=== PATIENT | male | born 1970 | race Caucasian/White ===

== ENCOUNTER 2017-01-14 23:41 | Emergency (ER) | payer BC ==
[~2017-01-14] VITALS: Ht 190.5 cm; Wt 109.6 kg
[~2017-01-14 23:41] MED LIST: CEPH500C2 PO; DULO30CA52 PO; DULO60CA56 PO; HYDR-3989 PO; IBUP-1546 PO; IBUP-1547 PO; LITH300T2 PO; LORA0.5T2 PO; QUET100T69 PO
--- OUTSIDE RECORDS SUMMARY | 2017-01-14 23:47 | XMS REPORT | Continuity of Care Document ---
Author Author [facility] Organization [facility] Address Unknown Phone Unavailable Allergies Active Description Code Type Severity Reaction Onset Reported/Identified Relationship to Patient Clinical Status Yes tramadol tramadol Drug Allergy Severe SEIZURES 06/04/2015 Medications Problems Procedures Results Encounters ACCT No. Visit Date/Time Discharge Status Pt. Type Provider Facility Loc./Unit Complaint [id number] 06/04/2015 20:50:00 2014 22:01:00 DIS Emergency Chanda POP, Julio Stoll [facility] E.ED
--- OUTSIDE RECORDS SUMMARY | 2017-01-14 23:47 | XMS REPORT | Continuity of Care Document ---
Author Author [facility] Organization [facility] Address Unknown Phone Unavailable Care Team Providers Care Clinical Education Consultant Name Role Phone No Pcp, Na Primary Care Physician Unavailable Source Comments Some departments are not documenting in the electronic medical record. If you do not see the information that you expected, contact Release of Information in the Health Information Management department at [phone] for further assistance in locating additional records.[facility] Active Allergies and Adverse Reactions Allergen Noted Date Severity Reactions Comments Dust 01/03/2016 Low ITCHING Grass Pollen 01/03/2016 Low SNEEZING Current Medications Prescription Sig. Disp. Refills Start End Date Status Date NO HOME MEDICATIONS Active Active Problems Problem Noted Date Traumatic arthritis of left knee 01/06/2016 Social History Tobacco Use Types Packs/Day Years Used Date Never Smoker Last Filed Vital Signs Vital Sign Reading Time Taken Blood Pressure 115/73 01/03/2016 10:41 AM CDT Pulse 65 01/03/2016 10:41 AM CDT Temperature - - Respiratory Rate - - Height 1.905 m (6' 3") 01/03/2016 10:41 AM CDT Weight 103.057 kg (227 lb 3.2 01/03/2016 10:41 AM CDT oz) Body Mass Index 28.4 01/03/2016 10:41 AM CDT Oxygen Saturation - - Plan of Care Health Maintenance Due Date Last Done Comments Physical (Comprehensive) 1978 Exam Pertussis Vaccine 1982 Tetanus Vaccine 1988 Influenza Vaccine 06/14/2017 Results from Last 3 Months Not on file
--- OUTSIDE RECORDS SUMMARY | 2017-01-14 23:47 | XMS REPORT | Continuity of Care Document ---
Author Author [facility] Organization [facility] Address Unknown Phone Unavailable Support Name Relationship Address Phone HARSHILISRAELNATALIYA APRN Caregiver [address] [place] [phone] Unavailable RORY DICKINSON MD Caregiver [address] [facility] [address] [place] [address] Unavailable ASHLI KELSEY Next Of Kin [address] [facility] [address] [address] [place] [id number] Insurance Providers Guarantor Rainer Kelsey Address [address] [facility] [place] [address] Email [email or web address] [facility] Policy Number [id number] Subscriber's Name Ashli Kelsey Relationship 01 Spouse Group Number [id number] Chief Complaint and Reason for Visit Chief Complaint Upper Extremity Problem Reason for Visit [id number] Problems Active Problems Medical Problem Onset Date Status Bursitis Unknown Acute Cellulitis Unknown Acute Leg pain Unknown Leg swelling Unknown Pain, dental Unknown Acute hepatitis c Unknown Acute seizure Unknown Acute Past Problems Medical Problem Onset Date Dental infection Unknown Fever Unknown Olecranon bursitis, right elbow Unknown Post-op pain Unknown Medications Current Home Medications Medication Dose Units Route Directions Days Qty Instructions Start Date Acetaminophen/Hydrocodone Bitart ([place] 5-325 Tablet) 5-325 Tablet 1 Tab Oral Every 6 Hr Prn as needed for Pain 2 Days [address] [employer] [facility] [address] [phone] 01/13/17 Cephalexin 500 Mg Capsule 500 Mg Oral Four Times Daily 10 Days [address] [employer] [facility] [address] [phone] 01/13/17 Duloxetine Hcl 30 Mg Capsule. 30 Mg Oral Daily TAKE WITH 60 MG TO EQUAL 90 MG DAILY 04/07/16 Duloxetine Hcl 60 Mg Capsule. 60 Mg Oral Daily TAKE WITH 30 MG TO EQUAL 90 MG DAILY 11/04/16 Ibuprofen 400 Mg Tablet 400-800 Mg Oral Three Times A Day as needed for Pain 11/04/16 Ibuprofen 800 Mg Tablet 800 Mg Oral Every 8 Hours Prn 7 Days [address] [employer] [facility] [address] [phone] 01/13/17 [place] Carbonate 300 Mg Tablet.er 300 Mg Oral Twice A Day Lorazepam 0.5 Mg Tablet 0.5 Mg Oral Twice A Day as needed for Anxiety 11/04/16 Quetiapine Fumarate 100 Mg Tablet 200 Mg Oral Bedtime 11/04/16 Past Home Medications Medication Directions Ordered Status Cymbalta , 07/02/15 Discontinued Lorazepam (Ativan) 0.5 Mg Tablet, 0.5 Mg Oral As Needed 11/15/11 Discontinued Temazepam (Restoril) 30 Mg Capsule, 10 Mg Oral Bedtime 11/15/11 Discontinued Social History Social History Problem Response Recorded Date/Time Onset Date Status Chewing Tobacco Status Yes 06/18/2013 8:19pm Not Applicable Not Applicable Hx Substance Use Y hx-meth, heroin, cocain, acid, ect 11/04/2016 12:53pm Not Applicable Not Applicable Hx Alcohol Use Yes 11/04/2016 12:53pm Not Applicable Not Applicable Tobacco Usage none 05/22/2014 7:27pm Not Applicable Not Applicable Hospital Discharge Instructions No hospital discharge instructions. Plan of Care Discharge Date 01/13/17 1:33pm Disposition 01 DISCHARGED HOME, SELF-CARE Condition at Discharge Stable Instructions/Education Provided Elbow Bursitis (ED) RICE Therapy (ED) Forms Provided [facility] Work/School Permit Prescriptions See Medication Section Referrals ROYR DICKINSON MD Address: [place] [facility] [address] [place] [phone] Additional Instructions/Education Take cephalexin as directed. Use ibuprofen as directed. Take hydrocodone only as needed for severe elbow pain. Follow with primary care clinic tomorrow. Functional Status No functional status results. Allergies, Adverse Reactions, Alerts Allergen Type Severity Reaction Status Last Updated Tramadol Allergy Unknown SEIZURE Active 01/13/17 Immunizations Query Response on File Recorded Date/Time Hx Influenza Vaccination No 07/02/15 4:29am Hx Pneumococcal Vaccination No 07/02/15 4:29am Hx Tetanus, Diptheria, Pertussis Y < 5 YEARS 07/02/15 4:29am Hx Influenza Vaccination No 07/02/15 4:29am Hx Tetanus, Diptheria, Pertussis Y < 5 YEARS 07/02/15 4:29am Influenza Vaccine Hx NO 01/13/17 1:07pm Tetanus Diptheria Vaccine History UP TO DATE 01/13/17 1:07pm Vital Signs Acute Vital Signs Vital Response Date/Time Temperature (Fahrenheit) 97.9 deg F (96.8 - 99.1) 01/13/2017 1:04pm Temperature (Calculated Celsius) 36.88083 degrees C (36.0 - 37.3) 01/13/2017 1:04pm Pulse Rate (adult) 91 bpm (60 - 100) 01/13/2017 1:04pm Respiratory Rate 20 breaths/min (10 - 20) 01/13/2017 1:04pm O2 Sat by Pulse Oximetry 98 % (90 - 100) 01/13/2017 1:04pm Blood Pressure 132/89 mm Hg 01/13/2017 1:04pm Height (Feet) 6 feet 11/04/2016 12:42pm Height (Inches) 75.50 inches 01/13/2017 1:04pm Weight (Kilograms) 106.700 kg 01/13/2017 1:04pm Body Mass Index (BMI) 29.0 01/13/2017 1:04pm Results Laboratory Results Test Name Result Units Flags Reference Collection Date/Time Result Date/ Time Comments White Blood Count 8.3 T/MM3 4.5-11.0 11/04/2016 1:14pm 11/04/2016 1: 20pm Red Blood Count 4.05 M/MM3 L 4.50-5.90 11/04/2016 1:14pm 11/04/2016 1: 20pm Hemoglobin 12.1 GM/DL L 13.5-17.5 11/04/2016 1:14pm 11/04/2016 1:20pm Hematocrit 36.7 % L 41-53 11/04/2016 1:14pm 11/04/2016 1:20pm Mean Corpuscular Volume 90.6 UM3 80-100 11/04/2016 1:14pm 11/04/2016 1: 20pm Mean Corpuscular Hemoglobin 29.9 UUG 26-34 11/04/2016 1:2016 1:20pm Mean Corpuscular Hemoglobin Concent 33.0 GM/DL 31-37 11/04/2016 1:11/04/2016 1:20pm RDW Standard Deviation 44.4 FL 36.9-50.2 11/04/2016 1:11/04/2016 1 :20pm Platelet Count 222 T/MM3 130-400 11/04/2016 1:1411/04/2016 1:20pm Mean Platelet Volume 8.3 UM3 L 9.4-12.4 11/04/2016 1:11/04/2016 1: 20pm Neutrophils (%) (Auto) 59.3 % 33-66 11/04/2016 1:11/04/2016 1: 20pm Lymphocytes (%) (Auto) 27.1 % 23-45 11/04/2016 1:11/04/2016 1: 20pm Monocytes (%) (Auto) 9.6 % H 0-9.0 11/04/2016 1:11/04/2016 1:20pm Eosinophils (%) (Auto) 3.7 % 0-4 11/04/2016 1:11/04/2016 1:20pm Basophils (%) (Auto) 0.2 % 0-2 11/04/2016 1:11/04/2016 1:20pm Immature Granulocyte % (Auto) 0.1 % 0.0-0.5 11/04/2016 1:2016 1:20pm Absolute Neutrophils (auto) 4.9 T/MM3 1.8-7.7 11/04/2016 1:2016 1:20pm Absolute Lymphocytes (auto) 2.2 T/MM3 1-4.8 11/04/2016 1:2016 1:20pm Absolute Monocytes (auto) 0.8 T/MM3 0-0.8 11/04/2016 1:11/04/2016 1:20pm Absolute Eosinophils (auto) 0.3 T/MM3 0-0.5 11/04/2016 1:2016 1:20pm Absolute Basophils (auto) 0.0 T/MM3 0-0.2 11/04/2016 1:11/04/2016 1:20pm Absolute Immature Granulocyte (auto 0.01 T/MM3 0.00-0.03 11/04/2016 1: 14pm 11/04/2016 1:20pm Icterus Index < 2 0-7 11/04/2016 1:1411/04/2016 1:34pm Chemistry Specimen Hemolysis 39 H 0-25 11/04/2016 1:14pm 11/04/2016 1: 34pm 26-70: Specimen Exhibited Slight Hemolysis - can falsely elevate K (Potassium) and Urine Protein. Turbidity < 20 0-20 11/04/2016 1:14pm 11/04/2016 1:34pm Sodium Level 144 MEQ/L 134-144 11/04/2016 1:14pm 11/04/2016 1:34pm Potassium Level 4.3 MEQ/L 3.6-5 11/04/2016 1:14pm 11/04/2016 1:34pm Chloride Level 111 MEQ/L H 98-107 11/04/2016 1:14pm 11/04/2016 1:34pm Carbon Dioxide Level 26 MEQ/L 22-30 11/04/2016 1:1411/04/2016 1: 34pm Anion Gap 7 MEQ/L 5-15 11/04/2016 1:14pm 11/04/2016 1:34pm Blood Urea Nitrogen 15.0 MG/DL 9-11/04/2016 1:14pm 11/04/2016 1: 34pm Creatinine 0.8 MG/DL 0.8-1.5 11/04/2016 1:14pm 11/04/2016 1:34pm BUN/Creatinine Ratio 19 RATIO 6-26 11/04/2016 1:11/04/2016 1:34pm Glomerular Filtration Rate Calc 105 11/04/2016 1:14pm 11/04/2016 1: 34pm Glucose Level 79 MG/DL 75-110 11/04/2016 1:14pm 11/04/2016 1:34pm Calculated Osmolality 277 MOSM/KG 261-280 11/04/2016 1:14pm 11/04/2016 1:34pm Calcium Level 9.0 MG/DL 8.4-10.2 11/04/2016 1:14pm 11/04/2016 1:34pm Total Bilirubin 0.40 MG/DL 0.20-1.30 11/04/2016 1:14pm 11/04/2016 1: 34pm Alkaline Phosphatase 65 U/L 38-126 11/04/2016 1:14pm 11/04/2016 1:34pm Total Protein 6.3 G/DL 6.3-8.2 11/04/2016 1:14pm 11/04/2016 1:34pm Albumin 3.7 G/DL 3.5-5.0 11/04/2016 1:14pm 11/04/2016 1:34pm Globulin 2.6 G/DL 2.4-3.6 11/04/2016 1:14pm 11/04/2016 1:34pm Albumin/Globulin Ratio 1.4 RATIO 1.1-2.2 11/04/2016 1:14pm 11/04/2016 1 :34pm Aspartate Amino Transf (AST/SGOT) 22 U/L 17-59 11/04/2016 1:14pm 2016 1:34pm Alanine Aminotransferase (ALT/SGPT) 25 U/L 21-72 11/04/2016 1:14pm 1:34pm C-Reactive Protein 20.4 MG/L H 0-9 11/04/2016 1:14pm 11/04/2016 1:59pm Procedures Procedure Status Date Provider(s) Ct maxillofacial w/o dye Completed 11/04/16 Comprehen metabolic panel Completed 11/04/16 Complete cbc w/auto diff wbc Completed 11/04/16 C-reactive protein Completed 11/04/16 Ther/proph/diag iv inf init Completed 11/04/16 Tx/pro/dx inj new drug addon Completed 11/04/16 Tx/pro/dx inj new drug addon Completed 11/04/16 Tx/pro/dx inj new drug addon Completed 11/04/16 Emergency dept visit Completed 11/04/16217664"INJECTION, CEFTRIAXONE SODIUM, PER 250 MG" Completed 11/04/16172918"INJECTION, KETOROLAC TROMETHAMINE, PER 15 MG" Completed 11/04/16900131"INJECTION, LORAZEPAM, 2 MG" Completed 11/04/16512943"INFUSION, NORMAL SALINE SOLUTION , 250 CC" Completed 11/04/16 Encounters Encounter Location Arrival/Admit Date Discharge/Depart Date Attending Provider Departed Emergency Room [facility] 01/13/17 12:53pm 01/13/17 1: 33pm NATALIYA GOLDEN APRN Departed Emergency Room [facility] 11/04/16 12:38pm 11/04/16 3: 30pm MIRIAN MCBRIDE MD Recent Diagnosis
[2017-01-15 00:03] VITALS: Ht 190.5 cm; Wt 109.6 kg
--- OUTSIDE RECORDS SUMMARY | 2017-01-15 00:15 | XMS REPORT | Continuity of Care Document ---
Author Author [facility] Organization [facility] Address Unknown Phone Unavailable Allergies Active Description Code Type Severity Reaction Onset Reported/Identified Relationship to Patient Clinical Status Yes tramadol tramadol Drug Allergy Severe SEIZURES 06/04/2015 Medications Problems Procedures Results Encounters ACCT No. Visit Date/Time Discharge Status Pt. Type Provider Facility Loc./Unit Complaint [id number] 06/04/2015 20:50:00 2014 22:01:00 DIS Emergency Chanda POP, Julio Stoll [facility] E.ED
--- OUTSIDE RECORDS SUMMARY | 2017-01-15 00:15 | XMS REPORT | Continuity of Care Document ---
Author Author [facility] Organization [facility] Address Unknown Phone Unavailable Care Team Providers Care Utility Agent Name Role Phone No Pcp, Na Primary Care Physician Unavailable Source Comments Some departments are not documenting in the electronic medical record. If you do not see the information that you expected, contact Release of Information in the Health Information Management department at [phone] for further assistance in locating additional records.[facility] Active Allergies and Adverse Reactions Allergen Noted [...]
--- NOTE | 2017-01-15 00:36 | NUR ---
LAB LAB AT BEDSIDE FOR BLOOD DRAW
--- NOTE | 2017-01-15 00:44 | ERPDOC ---
Departure Disposition Decision Date: Jan 15, 2017 Disposition Decision Time: 02:33 Disposition: 01 DISCHARGED HOME, SELF-CARE Impression Impression Impression: Primary Impression: Septic olecranon bursitis of right elbow Severity: Moderate Condition: Improved Seen By: Physician only Referrals: RORY DICKINSON MD (Family) 1 Day Patient Instructions: Elbow Bursitis (ED) Problems/Meds/Labs Reviewed?: Yes Medications reviewed and manag: Yes Additional Instructions: You have an infection in your elbow. Take the antibiotics as prescribed. Take ibuprofen and tylenol as needed for aches/pains. Use the norco for pain not controlled with the ibuprofen/tylenol. Follow up with your doctor tomorrow; you may need to have your elbow tapped several times until the fluid that comes out is clear. Follow up immediately if your symptoms are worsening or if you can't move your elbow. Follow up care ordered?: Yes Mental Status: Alert, Oriented HPI - Upper Extremity General Chief Complaint: Upper Extremity Pain Stated Complaint: septic bursitis Time Seen by MD: 00:05 Source: patient, family Exam Limitations: no limitations HPI - Upper Extremity Initial Comments 46[facility]. Pt was working in his basement 4 days ago and thinks he remembers bumping his elbow. Three days ago it began to swell; swelling got worse, so the pt was seen in urgent care. He was diagnosed with bursitis, but was placed on atbx (keflex), in addition to the usual treatment. Pt was then seen by his PCM yesterday and atbx were changed to rocephin IM and PO cipro and pt was dx'ed with septic bursitis. Sx have not improved, and pt is beginning to have systematic sx (chills, sweats, etc). To date, no one has drawn labs, culx, or ordered plain films. Occurred At: home Onset/Timing: Rapid, Getting worse Duration: other Pain/Severity Scale: Now & Worst: 6/10 Severity: moderate Pain/Injury Location: right elbow 1 - Swelling and erythema Method of Injury/Context: direct blow Modifying Factors: IMPROVES WITH: cold therapy, immobilization, pain medication , WORSE WITH: jarring, movement Hx of Similar Symptoms: Yes Quality: fullness Allergies: Coded Allergies: tramadol (Verified Allergy, Unknown, SEIZURE, 01/17/17) Past History Patient Medical History (1) Bursitis Past Medical History Metabolic: hypertension Hx Echocardiogram: No Neurological: seizures Musculoskeletal: osteoarthritis Infectious: hepatitis C Psychological: anxiety, bipolar, drug abuse Surgical History Joint: knee Vaccines Hx Influenza Vaccination: No Hx Pneumococcal Vaccination: No Hx Tetanus, Diptheria, Pertuss: Yes (< 5 YEARS) Social History Substance Use Type: does not use Alcohol Intake: occasionally Sexuality: female partner Review of Systems Musculoskeletal General: joint pain, joint swelling, see HPI All other Systems All Other Systems: Reviewed and Negative Physical Exam General General Nourishment: well nourished, well developed, appears stated age, no acute distress, adult, obese General Body Habitus: well groomed Vitals and Pain Weight: Kilograms: 109.600 Height (feet): 6 Height (inches): 3.00 Triage Pain Scale: RN VS reviewed by Provider: Yes Musculoskeletal Joint : Side: Right Joint: elbow Joint Findings: FOUND: ROM limited (Decreased extension), discoloration ( erythema), pain, swelling, NOT FOUND: deformity, instability, laceration Supervisory Exam Head: atraumatic Eyes: PERRL Nares: no exudate Neck: trachea midline Chest: symmetric Abdomen: non-distended Neurological: no abnormal movements Skin: pink, dry Psychological: alert, appropriate Differential Diagnoses Considering: Abscess, Contusion, Dislocation, Fracture, Sprain, Strain, Other ( Bursitis, septic bursitis, septic arthritis) Procedures Aspiration of Joint Procedure Detail Skin overlying the right elbow was cleaned with alcohol and the skin was infiltrated with 1% lidocaine with epinephrine. The skin was then prep'ed in the usual sterile fashion with chlorhexidine. The fluctuant mass was aspirated with an 18g needle with return of 6cc of turbid, sanguinous fluid. Pt tolerated the procedure well, and the fluctuant mass was confirmed decompressed. A sterile bandage was placed over the needle insertion site. The fluid was sent for analysis. Progress Results/Orders Orders Procedure Category Date Status Time Elbow Right 3 View RAD 01/15/17 Resulted Hemagram - Cbc No Diff LAB 01/15/17 Complete Lidocaine 1% / Epi PHA 01/15/17 Complete 1:100,000 (Xylocaine 01:15 Triamcinolone PHA 01/15/17 Complete (Kenalog-40) 01:15 Body Fluid Culture MANDEEP 01/15/17 Complete W/Gramstain 01:29 Iv Lock (Ed Only) EDM 01/15/17 Transmitted 01:29 Normal Saline (Normal PHA 01/15/17 Complete Saline Iv) 01:30 Clindamycin 600mg PHA 01/15/17 Complete Ivpb (Cleocin 600 Mg I 01:45 Blood Culture MANDEEP 01/15/17 Complete Morphine Sulfate PHA 01/15/17 Complete (Morphine) 02:00 Ondansetron Inj PHA 01/15/17 Complete (Zofran) 02:00 Hydrocodone/Apap PHA 01/15/17 Complete 5/325 Prepack ([place] 5 03:00 Lab Results Laboratory Tests Test 01/15/17 00:37 White Blood Count 15.3T/MM3 Red Blood Count 4.31M/MM3 Hemoglobin 12.7GM/DL Hematocrit 37.6% Mean Corpuscular Volume 87.2UM3 Mean Corpuscular Hemoglobin 29.5UUG Mean Corpuscular Hemoglobin Concent 33.8GM/DL RDW Standard Deviation 42.0FL Platelet Count 293T/MM3 Mean Platelet Volume 8.4UM3 Neutrophils % (Manual) 67.0% Lymphocytes % (Manual) 24.0% Monocytes % (Manual) 9.0% Medications Current ED Medications Lidocaine/ Epinephrine (Xylocaine 1%/ Epi 1:100,000) 20 ml O ONCE SQ Last administered on 01/15/17 01:21; Start 01/15/17 at 01:15; Stop 01/15/17 at 01:16; Status DC Triamcinolone Acetonide (Kenalog-10) 10 mg O ONCE INJ ; Start 01/15/17 at 01:15 ; Stop 01/15/17 at 01:16; Status Cancel Triamcinolone Acetonide 40 mg 40 mg O ONCE INJ ; Start 01/15/17 at 01:15; Stop 01/15/17 at 01:16; Status DC Sodium Chloride 1,000 ml @ 125 mls/hr Q8H ONCE IV Last administered on 01:52; Start 01/15/17 at 01:30; Stop 01/15/17 at 03:41; Status DC Clindamycin HCl/ Dextrose (CLEOCIN 600 mg in D5W 50 mL) 50 ml @ 100 mls/hr O ONCE IV Last administered on 01/15/17 02:10; Start 01/15/17 at 01:45; Stop at 02:14; Status DC Morphine Sulfate (Morphine) 2 mg O ONCE IV Last administered on 01/15/17 02:01 ; Start 01/15/17 at 02:00; Stop 01/15/17 at 02:01; Status DC Ondansetron HCl (Zofran) 4 mg O ONCE IV Last administered on 01/15/17 02:02; Start 01/15/17 at 02:00; Stop 01/15/17 at 02:01; Status DC Acetaminophen/ Hydrocodone Bitart ([place]CO 5 (PrePack)) 1 pack O ONCE SENT HOME Last administered on 01/15/17 03:03; Start 01/15/17 at 03:00; Stop 01/15/17 at 03: 02; Status DC Progress Progress Pt with scant G+ cocci and numerous PMN's on micro exam of bursal fluid. Will contact Ortho to verify lack of need for surgery, then treat with PO clinda and instructions to f/u with PCM for drainage as indicated. Consult/PCP Consult/PCP : Physician Contacted: Ortho Time Called: 02:30 Time of first response: 02:38 Type of discussion: Phone Consult/PCP Discussion Details Since pt is afebrile, has ROM, and with lab findings, f/u with PCM for re-eval and tapping as needed. If sx progress or fail to improve, will require surgical debridement. Xray Xray : Xray: Elbow R Interpretation: Normal, Interpreted by JACKIE Villagomez DO Jan 15, 2017 00:44 debridement. Xray Xray : Xray: Elbow R Interpretation: Normal, Interpreted by JACKIE Villagomez DO Jan 15, 2017 00:44
[2017-01-15 00:45] LABS: HCT - HEMATOCRIT 37.6 % (41-53); HGB - HEMOGLOBIN 12.7 GM/DL (13.5-17.5); MEAN CORPUSCULAR HGB 29.5 UUG (26-34); MEAN CORPUSCULAR HGB CONC(MCHC 33.8 GM/DL (31-37); MEAN CORPUSCULAR VOLUME 87.2 UM3 (80-100); MEAN PLATELET VOLUME 8.4 UM3 (9.4-12.4); RED BLOOD COUNT 4.31 M/MM3 (4.50-5.90); WBC - WHITE BLOOD COUNT 15.3 T/MM3 (4.5-11.0)
--- NOTE | 2017-01-15 00:53 | NUR ---
XRAY PT TAKEN TO XRAY PER W/C
--- NOTE | 2017-01-15 01:04 | NUR ---
ROOM PT RETURNED TO ROOM 1 PER W/C FROM XRAY
[2017-01-15] MEDS ORDERED: LIDOCAINE 1%/EPI 1:100,000 20ml MDV SQ ONE (01:15)
[2017-01-15] MEDS ORDERED: TRIAMCINOLONE INJ ONE (01:15)
[2017-01-15] MEDS ORDERED: TRIAMCINOLONE 40mg/ml INJECTION 1ml VIAL INJ ONE (01:15)
--- NOTE | 2017-01-15 01:20 | NUR ---
CLEANSING RIGHT ELBOW CLEANED BY DR JACOBSON WITH CHLORHEXADINE SCRUB PT JUDIE WELL, AT BEDSIDE
--- NOTE | 2017-01-15 01:21 | NUR ---
LOCAL LIDOCAINE W/EPI USED LOCAL BY DR JACOBSON TO RIGHT ELBOW PT JUDIE WELL
--- NOTE | 2017-01-15 01:24 | NUR ---
PROCEDURE #18GA NEEDLE INSERTED TO RIGHT ELBOW AND ASPIRATED 6CC FLUID PROCEDURE DONE BY DR INDIRA CASTRO TO PUNCTURE SITE AFTER PROCEDURE
[2017-01-15] MEDS ORDERED: NORMAL SALINE 1,000 ML IV ONE (01:30)
[2017-01-15] MEDS ORDERED: CLINDAMYCIN 600mg IVPB 50 ML IV ONE (01:45)
--- NOTE | 2017-01-15 01:48 | NUR ---
IVL IVL STARTED IN THE LEFT HAND WITH #20GA IV, FIRST ATTEMPT BLOOD OBTAINED FOR BLOOD CULTURES PT JUDIE WELL
--- NOTE | 2017-01-15 01:52 | NUR ---
IV FLUID #1 IV 1000CC NS STARTED AT 125CC/HR IV SITE WITHOUT REDNESS OR SWELLING PT JUDIE WELL AT [facility]
[2017-01-15] MEDS ORDERED: ONDANSETRON 4mg/2ml INJECTION IV ONE (02:00)
[2017-01-15] MEDS ORDERED: MORPHINE SULFATE 2 MG SYRINGE IV ONE (02:00)
--- NOTE | 2017-01-15 02:02 | NUR ---
ZOFRAN IV ZOFRAN GIVEN ORDERED
--- NOTE | 2017-01-15 02:04 | NUR ---
MORPHINE IV MORPHINE GIVEN ORDERED FOR PAIN PT RATES ELBOW PAIN 05/23
--- NOTE | 2017-01-15 02:10 | NUR ---
CLINDAMYCIN CLINDAMYCIN 600MG STARTED IVPB TO MAINLINE IV AT 50CC/HR IV SITE REMAINS WITHOUT REDNESS OR SWELLING PT AND TALKATIVE AND PLEASANT WITH STAFF
--- NOTE | 2017-01-15 02:23 | NUR ---
STATUS PT REPORTS HE GOT NO RELIEF WITH THE MORPHINE, DENIES NAUSEA ABLE TO BEND ARM COMPLETELY NOW WITH SOME OF THE FLUID OFF
[2017-01-15] MEDS ORDERED: CLIN300C86 PO (02:35)
--- NOTE | 2017-01-15 02:40 | NUR ---
CLINDAMYCIN IV CLINDAMYCIN INFUSED IV NS RESUMED AT 125CC/HR
[2017-01-15] MEDS ORDERED: HYDR-4246 PO (02:48)
[2017-01-15] MEDS ORDERED: HYDROCODONE/APAP 5/325 (PrePack) SENT HOME ONE (03:00)
--- NOTE | 2017-01-15 03:00 | NUR ---
IV FLUID #1 IV NS STOPPED 73CC INFUSED IV SITE WITHOUT REDNESS OR SWELLING
--- NOTE | 2017-01-15 03:01 | NUR ---
IVL IVL DC'D WITH CATH INTACT DRSG APPLIED TO IV SITE PT JUDIE WELL
--- NOTE | 2017-01-15 03:05 | NUR ---
INSTUCTIONS DISMISSAL AND MEDICATION INSTRUCTIONS GIVEN TO PT AND 2 RX GIVEN FOR CLINDAMYCIN AND NORCO WITH INSTRUCTIONS DISP PREPACK OF NORCO WITH INSTRUCTIONS PT AND BOTH VERBALIZED UNDERSTANDING OF ALL
[2017-01-15 03:08] VITALS: BP 137/73; PULSE 83; RESP 16; TEMP 98.9; O2SAT 96
--- NOTE | 2017-01-15 03:08 | NUR ---
DISMISS PT DISMISSED AMBULATORY WITH
--- NOTE | 2017-01-15 07:44 | DI ---
Indication: ITS.REASON: Pain, bursitis PROCEDURE: ELBOW RIGHT 3 VIEW: Encounter: Initial Comparison: None Findings: There is no acute fracture, dislocation or malalignment identified. Impression: No acute osseous abnormality. .
--- NOTE | 2017-01-19 14:46 | NUR ---
CULTURE REPORT SPOKE TO PT ABOUT RESULTS OF CULTURE. PT STATES HE HAD SURGERY TO THIS AREA BY DR. TONY 2 DAYS AGO. PT STATES [facility] CONSULTED A "DISEASE SPECIALIST" AND HE WAS PLACED ON KEFLEX AGAIN X3 WEEKS. DR. WHITE CONSULTED WITH DR. TONY AND HE CONFIRMS THAT HE SAW THE CULTURE REPORTS PRIOR TO THIS CALL AND PT IS ON THE CORRECT MEDICATION AND REQUESTS NO CHANGE. PT UPDATED PER PHONE.
== END 2017-01-15 03:08 | disposition home or self-care (01) ==
LOC: ED 23:41
DX: M71.121 Other infective bursitis, right elbow (principal); B96.89 Other specified bacterial agents as the cause of diseases classified elsewhere; Z79.899 Other long term (current) drug therapy
CPT/HCPCS: 20605; 36415; 73080; 85007; 85027; 87040; 87070; 87186; 99284; J2405; J7030

== ENCOUNTER 2017-01-17 08:53 | Day surgery (SDC) | payer BC ==
[2017-01-17] VITALS (24 sets, daily range): BP systolic 118–169; BP diastolic 64–114; PULSE 60–102; RESP 14–28; TEMP 96.8–98.6; O2SAT 92–100; Ht 190.5 cm; Wt 108.6 kg
[~2017-01-17] VITALS: Ht 190.5 cm; Wt 108.6 kg
[~2017-01-17 08:53] MED LIST changes: +CLIN300C86 PO; +HYDR-4246 PO; +NOZIN NASAL SWAB NS PRN; +ONDANSETRON 4mg/2ml INJECTION IV PRN
--- OUTSIDE RECORDS SUMMARY | 2017-01-17 08:58 | XMS REPORT | Continuity of Care Document ---
Author Author [facility] Organization [facility] Address Unknown Phone Unavailable Support Name Relationship Address Phone RORY DICKINSON MD Caregiver [address] [place] [address] Unavailable FEBRUARYJACKIE DO Caregiver [address] [address] Unavailable ASHLI KELSEY Next Of Kin [address] [place] [id number] Insurance Providers Guarantor Rainer Kelsey Address [address] [place] [address] Email [email or web address] [facility] Policy Number [id number] Subscriber's Name Ashli Kelsey Relationship 01 Spouse Group Number [id number] Chief Complaint and Reason for Visit Chief Complaint Upper Extremity Pain Reason for Visit Septic olecranon bursitis of right elbow Problems Active Problems Medical Problem Onset Date Status Bursitis Unknown Acute Cellulitis Unknown Acute Leg pain Unknown Leg swelling Unknown Pain, dental Unknown Acute hepatitis c Unknown Acute seizure Unknown Acute Past Problems Medical Problem Onset Date Dental infection Unknown Fever Unknown Olecranon bursitis, right elbow Unknown Post-op pain Unknown Septic olecranon bursitis of right elbow Unknown Medications Current Home Medications Medication Dose Units Route Directions Days Qty Instructions Start Date Acetaminophen/Hydrocodone Bitart ([place] 5-325 Tablet) 5-325 Tablet 1 Tab Oral Every 6 Hr Prn as needed for Pain 2 Days [address] John [employer] Quality Assurance Specialist [facility] [phone] 01/13/17 Cephalexin 500 Mg Capsule 500 Mg Oral Four Times Daily 10 Days [address] John [employer] Quality Assurance Specialist [facility] [address] . [phone] 01/13/17 Clindamycin Hcl 300 Mg Capsule 1 Cap Oral Four Times Daily 14 Days 56 Capsule TAKE WITH A FULL GLASS OF WATER TO AVOID ESOPHAGEAL IRRITATION. Duloxetine Hcl 30 Mg Capsule. 30 Mg Oral Daily TAKE WITH 60 MG TO EQUAL 90 MG DAILY 04/07/16 Duloxetine Hcl 60 Mg Capsule. 60 Mg Oral Daily TAKE WITH 30 MG TO EQUAL 90 MG DAILY 11/04/16 Hydrocodone/Acetaminophen ([place] 5-325 Tablet) 5-325 Tablet 1 Tab Oral Q6h/ 0300,0900,1500,2100 as needed for Pain 20 Tablet 01/15/17 Ibuprofen 400 Mg Tablet 400-800 Mg Oral Three Times A Day as needed for Pain 11/04/16 Ibuprofen 800 Mg Tablet 800 Mg Oral Every 8 Hours Prn 7 Days [address] John [employer] Quality Assurance Specialist [facility] [address] [phone] 01/13/17 Story Carbonate 300 Mg Tablet.er 300 Mg Oral Twice A Day Lorazepam 0.5 Mg Tablet 0.5 Mg Oral Twice A Day as needed for Anxiety 11/04/16 Quetiapine Fumarate 100 Mg Tablet 200 Mg Oral Bedtime 11/04/16 Past Home Medications Medication Directions Ordered Status Felicita , 07/02/15 Discontinued Lorazepam (Ativan) 0.5 Mg Tablet, 0.5 Mg Oral As Needed 11/15/11 Discontinued Temazepam (Restoril) 30 Mg Capsule, 10 Mg Oral Bedtime 11/15/11 Discontinued Social History Social History Problem Response Recorded Date/Time Onset Date Status Chewing Tobacco Status Yes 06/18/2013 8:19pm Not Applicable Not Applicable Hx Substance Use Y hx-meth, heroin, cocain, acid, ect 01/15/2017 12:10am Not Applicable Not Applicable Hx Alcohol Use Yes 01/15/2017 12:10am Not Applicable Not Applicable Tobacco Usage none 05/22/2014 7:27pm Not Applicable Not Applicable Query Response Start Date Stop Date Smoking Status Never smoker Hospital Discharge Instructions No hospital discharge instructions. Plan of Care Discharge Date 01/15/17 3:08am Disposition 01 DISCHARGED HOME, SELF-CARE Condition at Discharge Improved Instructions/Education Provided Elbow Bursitis (ED) Prescriptions See Medication Section Referrals RORY DICKINSON MD Order Date: 1 Day Address: [address] [place] [address] [place] [id number] Note: Additional Instructions/Education You have an infection in your elbow. Take the antibiotics as prescribed. Take ibuprofen and tylenol as needed for aches/pains. Use the norco for pain not controlled with the ibuprofen/tylenol. Follow up with your doctor tomorrow; you may need to have your elbow tapped several times until the fluid that comes out is clear. Follow up immediately if your symptoms are worsening or if you can't move your elbow. Care Plan and Goals Physician Care Plan Problem: Septic bursitis Goal: Follow up with primary care provider Instructions: Take medications and follow care plan as discussed/written Functional Status No functional status results. Allergies, Adverse Reactions, Alerts Allergen Type Severity Reaction Status Last Updated Tramadol Allergy Unknown SEIZURE Active 01/15/17 Immunizations Query Response on File Recorded Date/Time Hx Influenza Vaccination No 07/02/15 4:29am Hx Pneumococcal Vaccination No 07/02/15 4:29am Hx Tetanus, Diptheria, Pertussis Y < 5 YEARS 07/02/15 4:29am Hx Influenza Vaccination No 07/02/15 4:29am Hx Tetanus, Diptheria, Pertussis Y < 5 YEARS 07/02/15 4:29am Influenza Vaccine Hx NO 01/15/17 12:10am Tetanus Diptheria Vaccine History UP TO DATE 01/15/17 12:10am Tdap Vaccine Hx >5 YEARS 01/15/17 12:10am Vital Signs Acute Vital Signs Vital Response Date/Time Temperature (Fahrenheit) 98.9 deg F (96.8 - 99.1) 01/15/2017 3:08am Temperature (Calculated Celsius) 37.34884 degrees C (36.0 - 37.3) 01/15/2017 3:08am Pulse Rate (adult) 83 bpm (60 - 100) 01/15/2017 3:08am Respiratory Rate 16 breaths/min (10 - 20) 01/15/2017 3:08am O2 Sat by Pulse Oximetry 96 % (90 - 100) 01/15/2017 3:08am Blood Pressure 137/73 mm Hg 01/15/2017 3:08am Height (Feet) 6 feet 01/15/2017 12:03am Height (Inches) 3.00 inches 01/15/2017 12:03am Weight (Kilograms) 109.600 kg 01/15/2017 12:03am Body Mass Index (BMI) 30.0 01/15/2017 12:03am Results Laboratory Results Test Name Result Units Flags Reference Collection Date/Time Result Date/ Time Comments Neutrophils (%) (Auto) 59.3 % 33-66 11/04/2016 1:14pm 11/04/2016 1: 20pm Lymphocytes (%) (Auto) 27.1 % 23-45 11/04/2016 1:14pm 11/04/2016 1: 20pm Monocytes (%) (Auto) 9.6 % H 0-9.0 11/04/2016 1:14pm 11/04/2016 1:20pm Eosinophils (%) (Auto) 3.7 % 0-4 11/04/2016 1:14pm 11/04/2016 1:20pm Basophils (%) (Auto) 0.2 % 0-2 11/04/2016 1:14pm 11/04/2016 1:20pm Immature Granulocyte % (Auto) 0.1 % 0.0-0.5 11/04/2016 1:14pm 2016 1:20pm Absolute Neutrophils (auto) 4.9 T/MM3 1.8-7.7 11/04/2016 1:14pm 2016 1:20pm Absolute Lymphocytes (auto) 2.2 T/MM3 1-4.8 11/04/2016 1:14pm 2016 1:20pm Absolute Monocytes (auto) 0.8 T/MM3 0-0.8 11/04/2016 1:14pm 11/04/2016 1:20pm Absolute Eosinophils (auto) 0.3 T/MM3 0-0.5 11/04/2016 1:14pm 2016 1:20pm Absolute Basophils (auto) 0.0 T/MM3 0-0.2 11/04/2016 1:14pm 11/04/2016 1:20pm Absolute Immature Granulocyte (auto 0.01 T/MM3 0.00-0.03 11/04/2016 1: 14pm 11/04/2016 1:20pm Icterus Index < 2 0-7 11/04/2016 1:14pm 11/04/2016 1:34pm Chemistry Specimen Hemolysis 39 H 0-25 11/04/2016 1:14pm 11/04/2016 1: 34pm 26-70: Specimen Exhibited Slight Hemolysis - can falsely elevate K (Potassium) and Urine Protein. Turbidity < 20 0-20 11/04/2016 1:1411/04/2016 1:34pm Sodium Level 144 MEQ/L 134-144 11/04/2016 1:1411/04/2016 1:34pm Potassium Level 4.3 MEQ/L 3.6-5 11/04/2016 1:1411/04/2016 1:34pm Chloride Level 111 MEQ/L H 98-107 11/04/2016 1:1411/04/2016 1:34pm Carbon Dioxide Level 26 MEQ/L 22-30 11/04/2016 1:1411/04/2016 1: 34pm Anion Gap 7 MEQ/L 5-15 11/04/2016 1:1411/04/2016 1:34pm Blood Urea Nitrogen 15.0 MG/DL 9-11/04/2016 1:1411/04/2016 1: 34pm Creatinine 0.8 MG/DL 0.8-1.5 11/04/2016 1:1411/04/2016 1:34pm BUN/Creatinine Ratio 19 RATIO 6-26 11/04/2016 1:11/04/2016 1:34pm Glomerular Filtration Rate Calc 105 11/04/2016 1:11/04/2016 1: 34pm Glucose Level 79 MG/DL 75-110 11/04/2016 1:11/04/2016 1:34pm Calculated Osmolality 277 MOSM/KG 261-280 11/04/2016 1:11/04/2016 1:34pm Calcium Level 9.0 MG/DL 8.4-10.2 11/04/2016 1:11/04/2016 1:34pm Total Bilirubin 0.40 MG/DL 0.20-1.30 11/04/2016 1:1411/04/2016 1: 34pm Alkaline Phosphatase 65 U/L 38-126 11/04/2016 1:1411/04/2016 1:34pm Total Protein 6.3 G/DL 6.3-8.2 11/04/2016 1:11/04/2016 1:34pm Albumin 3.7 G/DL 3.5-5.0 11/04/2016 1:1411/04/2016 1:34pm Globulin 2.6 G/DL 2.4-3.6 11/04/2016 1:14pm 11/04/2016 1:34pm Albumin/Globulin Ratio 1.4 RATIO 1.1-2.2 11/04/2016 1:14pm 11/04/2016 1 :34pm Aspartate Amino Transf (AST/SGOT) 22 U/L 17-59 11/04/2016 1:14pm 2016 1:34pm Alanine Aminotransferase (ALT/SGPT) 25 U/L 21-72 11/04/2016 1:14pm 1:34pm C-Reactive Protein 20.4 MG/L H 0-9 11/04/2016 1:14pm 11/04/2016 1:59pm White Blood Count 15.3 T/MM3 H 4.5-11.0 01/15/2017 12:37am 01/15/2017 12 :46am Red Blood Count 4.31 M/MM3 L 4.50-5.90 01/15/2017 12:37am 01/15/2017 12: 46am Hemoglobin 12.7 GM/DL L 13.5-17.5 01/15/2017 12:37am 01/15/2017 12:46am Hematocrit 37.6 % L 41-53 01/15/2017 12:37am 01/15/2017 12:46am Mean Corpuscular Volume 87.2 UM3 80-100 01/15/2017 12:37am 01/15/2017 12:46am Mean Corpuscular Hemoglobin 29.5 UUG 26-34 01/15/2017 12:37am 2016 12:46am Mean Corpuscular Hemoglobin Concent 33.8 GM/DL 31-37 01/15/2017 12:37am 01/15/2017 12:46am RDW Standard Deviation 42.0 FL 36.9-50.2 01/15/2017 12:37am 01/15/2017 12:46am Platelet Count 293 T/MM3 130-400 01/15/2017 12:37am 01/15/2017 12:46am Mean Platelet Volume 8.4 UM3 L 9.4-12.4 01/15/2017 12:37am 01/15/2017 12 :46am Neutrophils % (Manual) 67.0 % H 33-66 01/15/2017 12:37am 01/15/2017 12: 59am Lymphocytes % (Manual) 24.0 % 23-45 01/15/2017 12:37am 01/15/2017 12: 59am Monocytes % (Manual) 9.0 % 0-9.0 01/15/2017 12:37am 01/15/2017 12:59am Microbiology Results Procedure Source Organism/Result Collection Date/Time Result Date/Time Result Status Body Fluid Culture Synovial Fluid, Right Elbow CULTURE INITIATED - RESULTS PENDING 01/15/2017 1:29am 01/15/2017 2:28am Preliminary Blood Culture Peripheral/Iv Start CULTURE INITIATED - RESULTS PENDING 01/15 1:50am 01/15/2017 1:53am Preliminary Procedures Procedure Status Date Provider(s) Ct maxillofacial w/o dye Completed 11/04/16 Comprehen metabolic panel Completed 11/04/16 Complete cbc w/auto diff wbc Completed 11/04/16 C-reactive protein Completed 11/04/16 Ther/proph/diag iv inf init Completed 11/04/16 Tx/pro/dx inj new drug addon Completed 11/04/16 Tx/pro/dx inj new drug addon Completed 11/04/16 Tx/pro/dx inj new drug addon Completed 11/04/16 Emergency dept visit Completed 11/04/16875743"INJECTION, CEFTRIAXONE SODIUM, PER 250 MG" Completed 11/04/16166022"INJECTION, KETOROLAC TROMETHAMINE, PER 15 MG" Completed 11/04/16043466"INJECTION, LORAZEPAM, 2 MG" Completed 11/04/16282950"INFUSION, NORMAL SALINE SOLUTION , 250 CC" Completed 11/04/16 Encounters Encounter Location Arrival/Admit Date Discharge/Depart Date Attending Provider Departed Emergency Room [facility] 01/14/17 11:41pm 01/15/17 3: 08am JACKIE JACOBSON DO Departed Emergency Room [facility] 01/13/17 12:53pm 01/13/17 1: 33pm NATALIYA GOLDEN APRN Departed Emergency Room [facility] 11/04/16 12:38pm 11/04/16 3: 30pm MIRIAN MCBRIDE MD Recent Diagnosis
--- OUTSIDE RECORDS SUMMARY | 2017-01-17 08:58 | XMS REPORT | Continuity of Care Document ---
Author Author [facility] Organization [facility] Address Unknown Phone Unavailable Allergies Active Description Code Type Severity Reaction Onset Reported/Identified Relationship to Patient Clinical Status Yes tramadol tramadol Drug Allergy Severe SEIZURES 06/04/2015 Medications Problems Procedures Results Encounters ACCT No. Visit Date/Time Discharge Status Pt. Type Provider Facility Loc./Unit Complaint [id number] 06/04/2015 20:50:00 2014 22:01:00 DIS Emergency Chanda POP, Julio Stoll [facility] E.ED
--- OUTSIDE RECORDS SUMMARY | 2017-01-17 08:58 | XMS REPORT | Continuity of Care Document ---
Author Author [facility] Organization [facility] Address Unknown Phone Unavailable Care Team Providers Care Supervisor Composing Room Name Role Phone No Pcp, Na Primary Care Physician Unavailable Source Comments Some departments are not documenting in the electronic medical record. If you do not see the information that you expected, contact Release of Information in the Health Information Management department at [phone] for further assistance in locating additional records.[facility] Active Allergies and Adverse Reactions Allergen [...]
[2017-01-17] MEDS ORDERED: VANCOMYCIN 1 G in NORMAL SALINE 250 ML IV SCH (09:00)
--- NOTE | 2017-01-17 09:10 | NUR ---
ADMIT AMBULATORY TO ROOM 107 WITH FAMILY. ALERT AND ORIENTED X3. O2 RA. LISA HunterRN NOTIFIED OF PATIENT'S ARRIVAL.
[2017-01-17] MEDS ORDERED: SULF1TAB41 PO (09:28)
[2017-01-17] MEDS ORDERED: LUTE1CAP PO (09:32)
[2017-01-17] MEDS ORDERED: HYDR-4078 PO (09:32)
[2017-01-17] MEDS: NORMAL SALINE 1,000 ML IV SCH ×2 (09:45→21:03)
[2017-01-17] MEDS: NOZIN NASAL SWAB NS SCH ×3 (09:46→22:04)
--- NOTE | 2017-01-17 09:49 | DI ---
Indication: ITS.REASON: Pre operative PROCEDURE: CHEST 1 VIEW: Encounter: Initial Comparison: April 07, 2016 FINDINGS: The lungs are clear. There is no abnormal airspace opacity, pleural effusion or pneumothorax identified. The heart size, pulmonary vasculature and mediastinum are within normal limits. Old healed left fourth posterior rib fracture. IMPRESSION: No acute cardiopulmonary abnormality. .
--- NOTE | 2017-01-17 09:55 | NUR ---
PAGE THIS RN PAGED DR. CLIFTON DUMAS OF CONSULTATION. DR. DUMAS HAS NOT RETURNED PAGE A THIS TIME.
[2017-01-17 09:59] LABS: INR 0.9 (0.76-1.04); PROTHROMBIN TIME 9.8 SEC (9.31-12.49); PTT 31.3 SEC (24-36)
[2017-01-17 10:04] LABS: ALBUMIN 3.9 G/DL (3.5-5.0); ALBUMIN/GLOBULIN RATIO 1.1 RATIO (1.1-2.2); ALKALINE PHOSPHATASE 71 U/L (38-126); ALT (SGPT) 27 U/L (21-72); ANION GAP 13 MEQ/L (5-15); AST (SGOT) 35 U/L (17-59); BUN/CREATININE RATIO 16 RATIO (6-26); C-REACTIVE PROTEIN 80.5 MG/L (0-9); CALCIUM 9.3 MG/DL (8.4-10.2); CHLORIDE 106 MEQ/L (98-107); CO2 - CARBON DIOXIDE 23 MEQ/L (22-30); CREATININE 0.9 MG/DL (0.8-1.5); GLOMERULAR FILTRATION RATE 91; GLUCOSE 102 MG/DL (75-110); POTASSIUM 4.6 MEQ/L (3.6-5); SODIUM 142 MEQ/L (134-144); TOTAL PROTEIN 7.3 G/DL (6.3-8.2)
[2017-01-17 10:07] LABS: BASOPHILS % (AUTO) 0.4 % (0-2); EOSINOPHILS # (AUTO) 0.3 T/MM3 (0-0.5); EOSINOPHILS % (AUTO) 3.2 % (0-4); HCT - HEMATOCRIT 37.7 % (41-53); HGB - HEMOGLOBIN 12.5 GM/DL (13.5-17.5); IMMATURE GRANULOCYTE # (AUTO) 0.01 T/MM3 (0.00-0.03); IMMATURE GRANULOCYTE % (AUTO) 0.1 % (0.0-0.5); LYMPHOCYTES # (AUTO) 2.3 T/MM3 (1-4.8); LYMPHOCYTES % (AUTO) 29.2 % (23-45); MEAN CORPUSCULAR HGB 29.1 UUG (26-34); MEAN CORPUSCULAR HGB CONC(MCHC 33.2 GM/DL (31-37); MEAN CORPUSCULAR VOLUME 87.9 UM3 (80-100); MEAN PLATELET VOLUME 8.1 UM3 (9.4-12.4); MONOCYTES # (AUTO) 0.7 T/MM3 (0-0.8); MONOCYTES % (AUTO) 8.8 % (0-9.0); NEUTROPHILS #(AUTO)-ABSOLUTE 4.6 T/MM3 (1.8-7.7); NEUTROPHILS % (AUTO) 58.3 % (33-66); RED BLOOD COUNT 4.29 M/MM3 (4.50-5.90); WBC - WHITE BLOOD COUNT 7.9 T/MM3 (4.5-11.0)
--- NOTE | 2017-01-17 10:13 | HPF ---
CHIEF COMPLAINT Right elbow septic olecranon bursitis. HISTORY OF PRESENT ILLNESS Mr. Kelsey is a 46-year-old male seen today as a referral from Dr. Anastacio Edward's office for a five-day history of pain, swelling and erythema of the right elbow. He has also had malaise, fever and chills. Symptoms began on Saturday. There was no obvious injury to the elbow. He thinks he may have bumped the elbow a day or two before when placing some windows and sheet rock. There was no laceration or abrasion. He began to experience swelling and sharp pain in the elbow, particularly when he rested the elbow. It became swollen and erythematous. He was seen in Dr. Edward's office on Saturday. At that time, he was given an injection of Rocephin as well as started on Keflex. Swelling and pain worsened. He was seen in [facility] ER early in the morning on January 15. At that time, the bursa was aspirated of approximately 6 mL of turbid fluid. These were sent for culture and gram stain. Gram stain showed gram-positive cocci and PMNs. Cultures at this time are still pending but showing no growth. While in the ER, he was started on clindamycin notably prior to presentation to the ER. He was also started on p.o. Cipro. He was again seen by Dr. Edward's office on Saturday and his symptoms continued to wax and wane so he was sent to the hospital for an infusion of vancomycin. He presents this morning with continued pain, redness and swelling to the olecranon of the right elbow but does note it seems a little bit better since the vancomycin injection yesterday. Patient of note does have a total knee arthroplasty on the left side. He states it is not painful at this time but has had some discomfort in it previously along with multiple joints. He is currently afebrile, denies nausea, vomiting. No numbness or tingling to the extremities. 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 REVIEW OF SYSTEMS Constitutional: Positive for recent fever and chills. Negative for fatigue, malaise, weight loss. HEENT: Negative for headache, vertigo. Respiratory: Negative for cough, SOA, recent infections, wheezing. Cardiovascular: Negative for chest pain, palpitations, leg swelling, syncope. Gastrointestinal: Negative for abdominal pain, constipation, diarrhea, heartburn, nausea, vomiting. Skin: Negative for skin infections, rash. Neurological: Negative for paresthesia, seizures or light sensitivity. Psychiatric: Negative for anxiety, depression. Hematologic/Lymphatic: Negative for easy bleeding or bruising. Musculoskeletal: Negative except as in HPI. PAST MEDICAL HISTORY Non-active tuberculosis. Hepatitis C that was treated last year with Harvoni and states he had good response. ADD. Insomnia. Anxiety. Osteoarthritis. MEDICATIONS Ativan. Clonidine. Duloxetine. Gabapentin. Ibuprofen. [place]. Lyrica. Maxitrol ophthalmic. Medrol Dosepak. Meloxicam. [place]. Seroquel. Currently taking clindamycin, Bactrim and had vancomycin yesterday. ALLERGIES KLONOPIN, BENZODIAZEPINES SURGICAL HISTORY Right shoulder arthroscopy. Left total knee arthroplasty. Left foot open reduction internal fixation. Tonsillectomy. SOCIAL HISTORY The patient a former smoker. Quit in February 2016. Chews tobacco daily. Denies alcohol or illicit drug use. FAMILY HISTORY Mother with diabetes. Father, no significant health history. PHYSICAL EXAMINATION VITAL SIGNS: Height 74 and 3/4-inches. Weight 240. Constitutional: Well-developed, well-nourished. Psychiatric: Alert and oriented x 3, NAD, of normal mood and affect. Skin: No rash or abnormal lesions in bilateral affected extremities. Vascular: 2+ palpable distal pulses with brisk capillary refill all digits. Neurologic: Normal sensation to light touch in bilateral affected extremities. Musculoskeletal: - Gait: Normal appearing gait without antalgia. No assistive device. - Affected Extremity: Right upper. - Inspection: Moderate swelling over the right olecranon bursa. There is erythema overlying the bursa as well as warm to touch. No significant erythema or cellulitis surrounding the area. - Palpation: Markedly tender over the olecranon bursa. No tenderness over the epicondyles. No other tenderness. - ROM: Full extension to 135 degrees of flexion. - Strength: Strength is noted to be 5/5 in all planes. - Contralateral Extremity: Complete examination was performed. Skin is intact. No swelling, no tenderness to palpation, normal ROM, and normal strength and stability were noted. ASSESSMENT Right elbow septic olecranon bursitis. PLAN I discussed the findings today with the patient regarding the diagnosis, imaging, history, and physical exam. The diagnosis was discussed utilizing models and diagrams. The natural history of the diagnosis was discussed. Options for treatment were reviewed. At this time, I recommend admitting the patient to the hospital on an outpatient. Status. Will plan to proceed with I&D of the olecranon bursa likely with primary closure, possibly leaving a drain. Will plan for preoperative antibiotic of vancomycin. Will consul to Infectious Disease for recommendation for further antibiotic treatment. Plan will be for him to be able to go home tomorrow. Once we have the antibiotic regimen assorted we carefully discussed the surgery including technique, rehabilitation, recuperation and overall expectations. We also discussed the risks, benefits, alternatives and potential complications including but not limited to continued infection, wound breakdown and wound healing difficulties. He wishes to proceed with surgery. Will continue to monitor previous labs but will obtain new cultures intraoperatively. Will get preoperative admission labs as well. ALYCIA
[2017-01-17] MEDS ORDERED: VANCOMYCIN 2,000 MG in NORMAL SALINE 500 ML IV ONE (10:30)
--- NOTE | 2017-01-17 10:40 | NUR ---
TRANSFER TO SURGERY VIA WHEELCHAIR. PT A&OX3. DENIES NEED FOR PAIN MEDICATION
[2017-01-17] MEDS ORDERED: BUPIVACAINE 0.25%/EPI 1:200,000 30ml SDV ONE ×2 (10:49→13:26)
[2017-01-17 10:58] LABS: BLOOD, URINE TRACE-LYSED (NEGATIVE); COLOR,URINE YELLOW (YELLOW); LEUKOCYTE ESTERASE ,URINE NEGATIVE (NEGATIVE); NITRITE,URINE NEGATIVE (NEGATIVE); UROBILINOGEN,URINE 0.2 EU/DL (NORMAL)
--- NOTE | 2017-01-17 11:08 | ANESPREOP ---
Anesthesia Record Date and Time DATE: 01/17/17 TIME: 11:05 Pre-Op Diagnosis abcess rt. elbow Proposed Surgical Procedure I & D rt. elbow Allergies: Coded Allergies: tramadol (Verified Allergy, Unknown, SEIZURE, 01/17/17) Ht/Wt/BMI Height: 6 ' 3.00 " Weight: 108.600 kg BMI: 29.9 kg/m2 Vital Signs Date Time Temp Pulse Resp B/P Pulse Ox O2 Delivery O2 Flow Rate FiO2 01/17/17 10:53 97.7 71 14 150/70 97 Room Air Medications Inpatient Medications Current Medications Medications (Trade) Dose Ordered Sig/[place] Start Time Stop Time Status Last Admin Dose Admin Sodium Chloride 1,000 ml @ 80 mls/hr [id number] 01/17/17 08:33 01/17/17 09:45 80 MLS/HR Vancomycin HCl/ Sodium Chloride (Vancocin/NS) 250 ml @ 250 mls/hr Q12HR 01/17/17 09:00 01/17/17 10:20 DC Hydromorphone HCl (Dilaudid) 0.5-1 mg IV Q1H PRN pain Q1H PRN 01/17/17 08:45 Ondansetron HCl (Zofran) 4 mg Q6H PRN 01/17/17 08:45 Multi-Ingredient Antiseptic (Nozin Nasal Swab) 1 each Q8HR 01/17/17 09:00 01/17/17 09:46 1 EACH Multi-Ingredient Antiseptic (Nozin Nasal Swab) 1 each PREOP PRN 01/17/17 08:45 Clindamycin HCl (Clindamycin HCl) 300 Mg Capsule, 1 CAP PO QID TAKE WITH A FULL GLASS OF WATER TO AVOID ESOPHAGEAL IRRITATION. Last Taken: on 01/17/17 07 Duloxetine HCl (Duloxetine HCl) 30 Mg Capsule.dr , 30 MG PO DAILY, (Reported) TAKE WITH 60 MG TO EQUAL 90 MG DAILY Last Taken: on 01/17/17 07 Duloxetine HCl (Duloxetine HCl) 60 Mg Capsule.dr , 60 MG PO DAILY, (Reported) TAKE WITH 30 MG TO EQUAL 90 MG DAILY Last Taken: on 01/17/17 0700 Hydrocodone/Acetaminophen ([place] 10-325 Tablet) 10-325 Tablet, 1-2 TAB PO Q6H, (Reported) Last Taken: on 4/6/17 0700 Ibuprofen (Ibuprofen) 400 Mg Tablet, 400-800 MG PO TID PRN for PAIN, (Reported) Last Taken: on 01/16/172199 [place] Carbonate ([place] Carbonate) 300 Mg Tablet.er, 300 MG PO BID, (Reported) Last Taken: on 01/17/17699 Lutein Extract/Zeaxanthin Ext (Lutein 15 mg Softgel) 1 Each Capsule, 1 CAP PO DAILY, (Reported) Last Taken: on 01/17/17699 Quetiapine Fumarate (Quetiapine Fumarate) 100 Mg Tablet, 200 MG PO HS, (Reported) Last Taken: on 01/16/172199 Sulfamethoxazole/Trimethoprim (Bactrim 400-80 mg Tablet) 1 Each Tablet, 1 TAB PO QID, (Reported) Last Taken: on 01/17/17699 Currently on Beta Meera: No Medical/Surgical History Anesthesia PMH: Reports: *Hypertension, Arthritis (KNEES, HANDS), Hepatitis ( HEP C), Seizures (WITH TRAMADOL), Tuberculosis (NOT ACTIVE), Denies: *Angina, * Diabetes, *[place], Anesthesia Reactions, Asthma, CHF, COPD, CVA/Stroke/TIA, Cancer, Cardiac Arrythmia, Hiatal Hernia, Pacemaker, Pneumonia, Reflux, Renal Disease, Rheumatic Fever, Sleep Apnea, Thyroid Disease Smoking Status: Current every day smoker Has pt. smoked today?: No Use Chewing Tobacco?: No Second Hand Exposure: No Substance Use Type: does not use Alcohol Intake: a few times a week Last Drink: unknown Past Surgical History Orthopedic Surgeries: Yes - BOTH KNEES, FOOT; R SHOULDER Abdominal Surgeries: No Genitourinary Surgeries: No Cardiac Surgeries: No Endocrine Surgeries: No Reproductive Surgeries: No Neurological Surgeries: No Ear Surgeries: No Nose Surgeries: No Throat Surgeries: No - TONSILECTOMY 2005 Other Surgeries: Yes - ALL TEETH PULLED Anesthesia Adverse Reactions: FOUND none Family Hx of Anesthesia Advers: none Hx of Motion Sickness: No Pertinent Findings Laboratory Tests 01/17/17 09:43 Test 01/17/17 09:43 Activated Partial Thromboplast Time 31.3SEC (24-36) Prothromb Time International Ratio 0.90 (0.76-1.04) EKG Rhythm: Sinus Rhythm Physical Exam Respiratory: Bilat breath sounds equal, Lungs clear Cardiovascular: FOUND Regular rate, rhythm, FOUND No murmur Airway Assessment Mallampati Score: II TMD: 2 Fingerbreadths Neck Extension: Good Teeth: Upper Dentures, Lower Dentures Overall Assessment: May Be Diff Mask Vent., May Be Diff Intubation ASA: 2 Plan Anesthesia Plan: GETA Discussion Discussed risks/options/alternatives of anesthesia and questions answered. Patient consents. Nursing pain assessment noted. Present: Spouse Attestation Statement Prior to the delivery of any anesthetic medication, I examined the patient, developed the plan, obtained the patient's consent and discussed the risk and benefits of the procedure with the patient/guardian. NITISH MCCONNELL CRNA Jan 17, 2017 11:08
[2017-01-17 11:10] LABS: BACTERIA,URINE NEGATIVE (NEGATIVE); RBC,URINE NONE SEEN /HPF (0-3); WBC,URINE NONE SEEN /HPF (0-5)
[2017-01-17] MEDS ORDERED: PROPOFOL 200mg 20 ML IV ONE (11:18)
[2017-01-17] MEDS ORDERED: LIDOCAINE 2% (20mg/ml) 5ml PF SDV ONE ×2 (11:18)
[2017-01-17] MEDS ORDERED: VECURONIUM 10mg/10ml INJECTION IV ONE (11:18)
[2017-01-17] MEDS ORDERED: FENTANYL 250mcg/5ml INJECTION ONE (11:23)
[2017-01-17] MEDS ORDERED: MIDAZOLAM 2mg/2ml INJECTION ONE (11:24)
[2017-01-17] MEDS ORDERED: ONDANSETRON 4mg/2ml INJECTION ONE (11:25)
[2017-01-17] MEDS ORDERED: GLYCOPYRROLATE 0.4mg/2ml INJECTION ONE (11:25)
[2017-01-17] MEDS ORDERED: DESFLURANE 240 ML LIQUID IH ONE (11:55)
--- NOTE | 2017-01-17 11:58 | NUR ---
NOTIFICATION DR. CLIFTON DUMAS NOTIFIED OF CONSULTATION AT THIS TIME. NO FURTHER ORDERS RECEIVED.
[2017-01-17] MEDS ORDERED: FENTANYL 100mcg/2ml INJECTION ONE (12:12)
[2017-01-17] MEDS ORDERED: KETOROLAC 30mg/ml INJECTION ONE (12:41)
--- NOTE | 2017-01-17 13:21 | PDPROCED ---
Immediate Operative Note DATE: 01/17/17 TIME: 13:19 Preop Diagnosis: Right elbow septic olecranon bursitis Postop Diagnosis: Right elbow septic olecranon bursitis Surgical Procedures: Other (right elbow Irrigation and debridement of olecranon bursitis) Surgeon: Yael Assembler Faucets: MARVIN Vital Anesthesia: General Complications: none Estimated Blood Loss see anesthesia LOBITO LAU Jan 17, 2017 13:20
[2017-01-17] MEDS ORDERED: BUPIVACAINE 0.25% (2.5mg/ml) INJ 30ml SDV ONE (13:27)
[2017-01-17] MEDS: HYDROMORPHONE 2mg/ml INJECTION IV PRN ×5 (13:29→19:55)
--- NOTE | 2017-01-17 14:15 | NUR ---
RECEIVED FROM SURGERY. PT A&OX2. PT REPORTS PAIN 8/10. PT ABLE TO TRANSFER SELF FROM CART TO BED, TOLERATING WELL.
[2017-01-17] MEDS ORDERED: SALINE FLUSH 10ml SYRINGE IVF ONE (15:03)
[2017-01-17] MEDS ORDERED: BACITRACIN INJ. 50,000 UNITS VL INJ ONE (15:03)
[2017-01-17] MEDS ORDERED: POLYMYXIN B SULFATE IM ONE (15:03)
--- NOTE | 2017-01-17 15:23 | ANESPO ---
Post-Op Note Date 01/17/17 Time: 15:20 Status Pt Participated in Evaluation: Pt participated in person Vital Signs Date Time Temp Pulse Resp B/P Pulse Ox O2 Delivery O2 Flow Rate FiO2 01/17/17 15:05 71 16 134/64 100 Room Air 01/17/17 14:20 98.2 01/17/17 13:15 4.00 Respiratory Function: Airway patent, Regular respirations Cardiovascular Function: Regular pulse Mental Status: Alert/oriented Pain Level Intensity: 7 (po pain med given) Hydration: Taking po fluids Complications during Recovery None apparent Follow-Up Instructions Instructions Per Surgeon RORY RICO CRNA Jan 17, 2017 15:23
--- NOTE | 2017-01-17 16:35 | NUR ---
CONSULT DR. DUMAS AT BEDSIDE ASSESSING/VISITING WITH PT.
[2017-01-17] MEDS: IBUPROFEN 800 MG TABLET PO SCH (17:42)
[2017-01-17] MEDS: VANCOMYCIN 1,750 MG in NORMAL SALINE 500 ML IV SCH (17:43)
--- NOTE | 2017-01-17 17:57 | CONSF ---
DATE 01/17/2017 CHIEF COMPLAINT Infectious disease consultation was requested by Dr. Conley for antibiotic recommendations for olecranon bursitis. HISTORY OF PRESENT ILLNESS Mr. Kelsey is a 46-year-old man who states that he has had right elbow pain and swelling since last Saturday, January 13. He thinks that perhaps he might have bumped his elbow but does not recall a specific injury. He states that after quaker on Saturday he noted that it was painful and swollen. He was seen in convenient care on the . He was given Keflex 500 mg p.o. q.i.d. for ten days and it was recommended that he follow up with his primary care physician. He was seen by his primary care provider, I believe on Saturday, and his antibiotics were changed to IM Rocephin and oral Cipro. The patient reports that with the antibiotics the area of redness seemed to decrease in size but a few hours later it started increasing again in size. The area of redness located directly over the olecranon process did not ever resolve. He was seen in the emergency department on January 15 after midnight. At that time he complained of chills and sweats. In the emergency department the right olecranon bursa was aspirated and there were 6 mL of turbid sanguineous fluid that was removed and sent for cultures. The Gram stain showed gram-positive cocci and many neutrophils. The culture is growing Staph aureus and susceptibilities are currently pending. He had blood cultures drawn which are no growth after 48 hours. He had labs drawn in the emergency department and his white count was 15.3. CRP was 80.5. He had an x-ray of the right elbow which was unremarkable. He was referred to Dr. Conley for further evaluation. He also was given a dose of vancomycin on Saturday the , which was yesterday. He was seen this morning by Dr. Conley and it was recommended that he undergo irrigation and debridement of the olecranon bursa with primary closure which was done earlier today as an outpatient. Intraoperative culture was obtained and the Gram stain is negative and the culture is pending. His white blood cell count today is down to 7.9. I was asked to help with antibiotics. The patient he has been continued on vancomycin. PAST MEDICAL HISTORY History of latent tuberculosis which was treated approximately 20 years ago according to the patient. He states that he grew up in the [facility] and that is presumably his risk factor for tuberculosis. History of hepatitis C that was treated successfully last year with Deanne. History of osteoarthritis. Anxiety. Attention Deficit Disorder. History of polysubstance abuse including heroin, cocaine and methamphetamines. History of macular degeneration. History of posttraumatic stress disorder. PAST SURGICAL HISTORY Tonsillectomy. Full-mouth dental extraction. Left total knee arthroplasty. Arthroscopic surgery on the right knee and right shoulder. Left foot open reduction internal fixation. SOCIAL HISTORY He is a former smoker and has a history of smokeless tobacco use. However, he tells me that since his teeth have been removed he has been smoking cigarettes. Remote history of drug abuse as listed above. FAMILY HISTORY Mother has diabetes. ALLERGIES He denies any allergies to antibiotics. Tramadol causes seizures. REVIEW OF SYSTEMS He reports some chills and sweats and generalized malaise and achiness. He reports pain and swelling in the right elbow. He reports erythema over the right elbow which he states was spreading proximally, medially and also distally. He reports a prior history of olecranon bursitis about two years ago. He denies any visual changes. He has had mild headache. Denies any nausea, vomiting or diarrhea. He reports his appetite is well preserved. He denies any chest pain or shortness of breath. Denies any dysuria or other urinary complaints. He denies any other joint pains. Denies any rashes or skin problems. He denies any prior history of MRSA. No history of diabetes. The rest of the review of systems is negative other than that mentioned above. PHYSICAL EXAMINATION VITAL SIGNS: Temperature is 98.2, blood pressure is 123/72. Pulse 64, respirations 16. Oxygen saturation 92% on room air. His height is 75 inches. Weight is 109 kg. GENERAL: He appears comfortable and is in no acute distress. HEENT: Pupils equal, round, reactive to light. Extraocular movements intact. Sclerae are nonicteric. Oropharynx is clear. He is edentulous. NECK: Appears to be supple. HEART: Regular rate and rhythm. No murmurs noted. LUNGS: Clear to auscultation bilaterally anteriorly. ABDOMEN: Soft , nontender. He has bowel sounds present. No guarding or rebound. : No Palacio catheter is in place. EXTREMITIES: His right upper extremity is wrapped from his recent surgery and there is a drain in place. His fingers appear to be well perfused. He does not appear to have any joint effusions on his knees or ankles. Lower extremities are without any significant edema. NEUROLOGIC: Exam is grossly nonfocal. He is somewhat sleepy, presumably related to his pain medications. He wakes up to questions and responds to questions appropriately. His speech is normal. He is moving all four extremities non-focally. SKIN: No rashes noted. He does have a tattoo noted on his chest. PSYCHIATRIC: His mood and affect are appropriate. MEDICATIONS Vancomycin 1.75 g IV q.8h. Cymbalta. Seroquel. Onancock. Motrin. Percocet p.r.n. Dilaudid p.r.n. IMPRESSION 1. Septic olecranon bursitis of the right elbow, status post irrigation and debridement earlier today, surgical cultures pending but previous wound culture from January 15 is growing Staph aureus with susceptibilities pending. 2. Chills, subjective fever and flu-like symptoms. 3. Leukocytosis, improving. 4. Remote history of polysubstance abuse, status post treatment in 2000. 5. PTSD, currently on Seroquel, Cymbalta and Onancock. 6. History of hepatitis C, status post treatment with Harvoni last year. 7. Osteoarthritis. 8. Tobacco use. PLAN/DISCUSSION I discussed with the patient that I think there are two possible clinical scenarios: 1. The staph aureus is MRSA in which case most of the antibiotics he has had previously would not be very active. 2. The second scenario is that the Staph aureus could be a susceptible strain of Staph aureus. However, in some cases the bursa needs to be drained to really improve this process. For now I would recommend continue with vancomycin. I would suspect that the susceptibilities from the culture obtained January 15 should be available tomorrow. Once those are available I could make final antibiotic recommendations. If this is an MRSA, then I would recommend oral clindamycin if it has activity, 450 mg p.o. q.i.d. If the MRSA is resistant to clindamycin I would recommend Bactrim one double-strength tablet p.o. b.i.d. If this turns out to be methicillin-susceptible Staph aureus I would recommend cephalexin 500 mg p.o. q.i.d. He does have some Keflex and some clindamycin at home. I would recommend a duration of antibiotics of approximately three to four weeks. I suspect that since the bursa was drained surgically that he will continue to improve on oral antibiotics and will not need a course of intravenous antibiotics. I would be happy to see the patient in followup. Thank you for allowing me to participate in the care of this patient. ALYCIA
--- NOTE | 2017-01-17 20:02 | NUR ---
STATUS PT IS A&OX3. VSS. PT REPORTED PAIN 5-10/10 THROUGHOUT SHIFT, RN ADMINISTERED PRN DILAUDID, PERCOCET AND SCHEDULED MOTRIN. CHUCK DRAIN, PATENT AND DRAINING SEROSANGUINEOUS FLUID. PT UP TO BR WITH STANDBY ASSIST X1. PT REPORTS AT DIFFERENT TIMES THAT HE FEELS LIKE "SOMETHING IS CATCHING WHEN I MOVE MY RIGHT ARM." RN ENCOURAGED PT TO KEEP ARM EXTENDED ON ICE PACK ON ELEVATED PILLOWS. PT IS RESTLESS, MOVING OFTEN. RN REMOVED PAWLE WRAP AND PUFFY DRESSING TO EXAMINE ELBOW FOR SEEPAGE AND VERIFY STITCH PLACEMENT. SITE IS ASYMPTOMATIC, STITCHES INTACT. PT ACCEPTED NURSE REPORT AND HAS BEEN KEEPING ARM EXTENDED AND ELEVATED. AT BEDSIDE THROUGHOUT SHIFT.
[2017-01-17] MEDS ORDERED: QUETIAPINE 200 MG TABLET PO SCH (22:00)
[2017-01-17] MEDS: LITHIUM CARBONATE 300 MG CAPSULE PO SCH (22:03)
[2017-01-18] VITALS (7 sets, daily range): BP systolic 129–134; BP diastolic 66–73; PULSE 62–69; RESP 16–20; TEMP 96.9–98.6; O2SAT 97–98
[2017-01-18] MEDS: HYDROMORPHONE 2mg/ml INJECTION IV PRN ×3 (00:53→08:10)
[2017-01-18] MEDS: NORMAL SALINE 1,000 ML IV SCH (00:54)
[2017-01-18] MEDS: VANCOMYCIN 1,750 MG in NORMAL SALINE 500 ML IV SCH ×2 (01:53→10:13)
--- NOTE | 2017-01-18 06:00 | NUR ---
END OF SHIFT SUMMARY: Alert, orientated, pleasant and cooperative through out this shift. DILAUDID IV and PERCOCET PO administered through out the night for pain control. Dominick wrap to right arm loosened. Pt. encouraged to keep right arm elevated on pillows, which he does. Serous sangounous drainage to CHUCK drain. Pt. does ambulate to bathroom independantly; reports voiding wirhout difficulty. Tolerates food and fluid well. IV site assymtomatic. NS infuses at 80 cc/hr. Vancomyacin administered this shift. Sleeps at intervals. Patient did remove all dressing, splint and dominick wrap from right arm. He reports his arm feels better without the dressing. He does keep the arm elevated on pillows. Reported to [facility] as he is making rounds.
--- NOTE | 2017-01-18 07:22 | OPNOTEF ---
DATE OF PROCEDURE 01/17/2017 PREOPERATIVE DIAGNOSIS Right septic olecranon bursitis. POSTOPERATIVE DIAGNOSIS Right septic olecranon bursitis. PROCEDURE 1. Right olecranon bursitis open excision. 2. Right olecranon bursa irrigation and debridement. SURGEON Dale Conley MD SAFETY COORDINATOR Julio Kulkarni PA-C ANESTHESIA General. FLUIDS Please refer to Anesthesia chart. EBL Minimal. TOURNIQUET Please refer to Anesthesia chart. COMPLICATIONS None. CONDITION Stable to Recovery Room. SPECIMENS Aerobic and anaerobic cultures were sent, as was tissue, to pathology. DESCRIPTION OF PROCEDURE The patient was identified in the preoperative holding area. The operative extremity was identified and appropriately marked. The risks, benefits, alternatives and potential complications were discussed and informed consent was obtained. The patient was taken to the operating theatre, placed supine on the operating table with a guerrero bag beneath. Appropriate cardiorespiratory monitors were applied. General anesthesia was induced. The patient was positioned in a lateral decubitus position on the guerrero bag with an axillary roll placed. The guerrero bag was then deflated. The right upper extremity was in the upward position. A bolster was added to the side of the bed and the arm was placed over the bolster with the shoulder at a 90-degree forward flexion position allowing the elbow to bend at 90 degrees hanging over the bolster. A tourniquet was then applied though not yet inflated. The right upper extremity was then sterilely prepped and draped in the usual fashion. Surgical time-out was performed, confirmed with myself, the sap solution manager consultant and circulating nurse. Preoperative antibiotics in the form of vancomycin were administered preoperatively. This was started yesterday by his primary care provider and therefore continued. The arm was elevated though not exsanguinated and the tourniquet was inflated to 250 mmHg. A curvilinear 8 cm incision was created overlying the swollen and erythematous olecranon bursa. This was curved in a radial direction. Electrocautery was used for hemostasis as necessary. The bursal space was identified and cultures were taken at this time. The incision was then lengthened. The bursa was subcutaneously dissected from the underside of the skin and extended proximally and distally. Retractors were placed. The bursa was then excised proximally down to the level of the triceps fascia. There was a small tract which extended medially to the medial aspect of the triceps and then ended in a blind pouch. There was no evidence of joint involvement. The remainder of the bursa was then excised as well. A curette was used to roughen the subcutaneous tissue as well as the olecranon and fascial surfaces. The elbow was then irrigated with 1500 ml of polymyxin/bacitracin saline fluid. This was then followed by another 1000 ml of sterile saline irrigation. A 10-Armenian drain was then placed exiting above the incision subcutaneous just posterior to the triceps tendon. The tail of the drain was cut. The subcutaneous tissues were then reapproximated with three to four interrupted inverted 2-0 Monocryl sutures. Skin was then closed with interrupted simple and horizontal mattress skin sutures. The skin was then infiltrated with 0.25% Marcaine. Sterile dressings were then applied after application of a Xeroform gauze. The posterior aspect of the elbow was padded with ABDs and then overwrapped with sterile Webril. An anterior splint was then placed, placing the patient's elbow in approximately 60 degrees of flexion so as not to place direct pressure over the incision line. An Dominick bandage was then applied. The tourniquet was deflated after placing the drain to a Addy-Hwang suction drain. The patient was then transferred back to the supine position. He was awakened from anesthesia and taken to the recovery room in stable and satisfactory condition. ALYCIA
--- NOTE | 2017-01-18 07:53 | PDORTHOPN ---
Subjective Date DATE: 01/18/17 TIME: 07:48 Subjective Az took his splint off last night. He said it felt like it was pressing on the drain tube. Pain has been acceptable, but he does better with Hydrocodone and requests this change. 10 ml is documented out of his drain since midnight. Dr. Conley would like to keep the drain in for roughly 24 hours. Objective Vital Signs Vital signs Vital Signs 01/17/17 01/17/17 01/17/17 01/17/17 19:55 20:00 20:00 22:05 Temp 98.2 Pulse 60 60 62 Resp 16 20 20 20 B/P 134/69 134/66 Pulse Ox 99 98 O2 Delivery Room Air Room Air 01/18/17 01/18/17 01/18/17 01/18/17 00:00 00:53 02:05 04:19 Temp 98.2 98.2 Pulse 62 62 Resp 20 16 16 20 B/P 134/66 134/66 Pulse Ox 98 98 O2 Delivery Room Air Room Air O2 Flow Rate 4.00 4.00 01/18/17 01/18/17 01/18/17 04:43 05:19 06:05 Temp 96.9 96.9 Pulse 63 63 Resp 16 20 20 B/P 134/69 134/69 Pulse Ox 97 97 O2 Delivery Room Air Room Air O2 Flow Rate 4.00 Height (Feet): 6 Height (Inches): 3.00 Weight (Kilograms): 108.600 General General Appearance: Alert, Orientated x 3, Well Developed, No Acute Distress Respiratory (Brief) Respiratory Brief: FOUND: non-labored Cardiovascular (Brief) Cardiac: FOUND: calf easily compressible, calf soft, nontender, pedal pulses intact Abdomen (Brief) Abdominal Brief: FOUND: non-tender Musculoskeletal (Brief) Comments dressing intact, no drainage. Surgical Site Incision: FOUND: no drainage Integumentary (Brief) Integumentary Brief: FOUND dry, FOUND pink, FOUND warm Neurologic (Brief) Neurological Brief: FOUND: extremities w/o deficits, neuro intact Psychiatric (Brief) Psychiatric Brief: FOUND: no acute distress Laboratory Laboratory Laboratory Tests 01/17/17 09:43 Laboratory Tests 01/17/17 09:43 Microbiology Microbiology Microbiology Date/Time Source Procedure Growth Status 01/17/17 12:07 Elbow Right Gram Stain - Final Resulted 01/17/17 12:07 Elbow Right Surgical Culture - Preliminary CULTURE INITIATED - RESULTS PENDING Resulted Assessment & Plan Problems: (1) hepatitis c Status: Resolved Assessment & Plan: s/p Harvoni treatment (2) Bursitis Status: Acute Qualifiers: Bursitis location: elbow Laterality: right Assessment & Plan: infective bursitis , cultures pending, on Vancomycin Hospital Course Summary Disclaimer The visit summary below is not to be considered part of the above Progress Note. LOBITO LAU Jan 18, 2017 07:52
[2017-01-18 08:06] LABS: BASOPHILS % (AUTO) 0.5 % (0-2); EOSINOPHILS # (AUTO) 0.3 T/MM3 (0-0.5); HCT - HEMATOCRIT 34.9 % (41-53); HGB - HEMOGLOBIN 11.6 GM/DL (13.5-17.5); IMMATURE GRANULOCYTE # (AUTO) 0.01 T/MM3 (0.00-0.03); IMMATURE GRANULOCYTE % (AUTO) 0.2 % (0.0-0.5); LYMPHOCYTES # (AUTO) 2.2 T/MM3 (1-4.8); LYMPHOCYTES % (AUTO) 33.7 % (23-45); MEAN CORPUSCULAR HGB 29.5 UUG (26-34); MEAN CORPUSCULAR HGB CONC(MCHC 33.2 GM/DL (31-37); MEAN CORPUSCULAR VOLUME 88.8 UM3 (80-100); MONOCYTES # (AUTO) 0.6 T/MM3 (0-0.8); MONOCYTES % (AUTO) 9.5 % (0-9.0); NEUTROPHILS #(AUTO)-ABSOLUTE 3.4 T/MM3 (1.8-7.7); NEUTROPHILS % (AUTO) 52.1 % (33-66); RED BLOOD COUNT 3.93 M/MM3 (4.50-5.90); WBC - WHITE BLOOD COUNT 6.6 T/MM3 (4.5-11.0)
[2017-01-18] MEDS: IBUPROFEN 800 MG TABLET PO SCH ×2 (08:10→12:18)
[2017-01-18] MEDS: NOZIN NASAL SWAB NS SCH (08:12)
[2017-01-18] MEDS: LITHIUM CARBONATE 300 MG CAPSULE PO SCH (08:12)
[2017-01-18 08:18] LABS: ANION GAP 9 MEQ/L (5-15); BUN/CREATININE RATIO 11 RATIO (6-26); CALCIUM 9.4 MG/DL (8.4-10.2); CHLORIDE 108 MEQ/L (98-107); CO2 - CARBON DIOXIDE 24 MEQ/L (22-30); CREATININE 0.9 MG/DL (0.8-1.5); GLOMERULAR FILTRATION RATE 91; GLUCOSE 115 MG/DL (75-110); POTASSIUM 4.3 MEQ/L (3.6-5); SODIUM 141 MEQ/L (134-144)
[2017-01-18] MEDS ORDERED: CEPH-583 PO (08:51)
--- NOTE | 2017-01-18 08:55 | NUR ---
NUNU CM IN TO VISIT WITH PT. HE IS ALERT AND ORIENTED. HIS AND A FEMALE FAMILY MEMBER ARE PRESENT. PT PLANS TO DC HOME. HE DENIES DC NEEDS. LACE SCORE IS 8. NO FURTHER INTERVENTION NEEDED. Addendum: 01/18/17 at 0856 by AURORA CORTES RN Amended: Links added.
[2017-01-18] MEDS ORDERED: DULOXETINE 60 MG CAPSULE PO SCH (09:00)
[2017-01-18] MEDS ORDERED: LORAZEPAM 1 MG TABLET PO PRN (09:00)
[2017-01-18] MEDS ORDERED: DULOXETINE 30 MG CAPSULE PO SCH (09:00)
--- NOTE | 2017-01-18 09:55 | NUR ---
DR. PAT STEWART IN ROOM TO VISIT PATIENT THIS MORNING. PT'S DRESSING WAS TAKEN OFF BY THE PATIENT EARLIER THIS SHIFT. CHUCK DRAIN INTACT. DR. STEWART REMOVED THE CHUCK DRAIN AT THIS TIME AND 5CC OF SANGUINEOUS FLUID NOTED AND CHARTED. DR. STEWART THEN APPLIED A DRESSING OF GAUZE 4X4'S, ABD PAD, PAWEL WRAP, FOLLOWED BY 4 INCH ORTH GLASS CASTING MATERIAL, AND 2 PAWEL WRAPS WELL. PT TOLERATED THE TREATMENT WELL, FAMILY PRESENT AT THIS TIME. NO QUESTIONS AT THIS TIME. STAFF TO MONITOR SITE.
[2017-01-18] MEDS ORDERED: HYDR-3995 PO (11:47)
--- NOTE | 2017-01-18 12:33 | NUR ---
VANCOMYCIN CONSULT (Day 3) S: 46 y/o M admitted with right elbow bursitis. Was seen 01/13 at the [facility] and started on cephalexin 500 mg PO QID. On 01/14 was seen by PCP and given ceftriaxone IM and changed to ciprofloxacin PO. On 01/15 was seen in ED; had fluid removed from elbow and cultured and antibiotic changed to clindamycin 300 mg PO QID. Was given vancomycin x 1 in infusion therapy on 01/16 before being admitted on 01/17. Pharmacy consulted to manage vancomycin therapy. O: Ht=75 inches, Uo=179 kg, adjusted BW~94 kg SCr=0.9 mg/dL, CrCl>120 mL/min WBC=6.6 T/mm3 24-h Tmax=98.6F Blood cultures, 2 of 2: no growth to date 01/17 R elbow surgical gram stain: no organisms seen 01/15 R elbow synovial fluid culture: S. aureus, methicillin-susceptible (from ED account) Vancomycin trough concentration~17.5 mcg/mL A/P: Day 3 vancomycin for right elbow bursitis. Per ID progress note recommendations, may change antibiotic to cephalexin 500 mg QID x 3-4 weeks since culture resulted in methacillin-susceptible S. aureus. As far as vancomycin dosing, trough is within the goal range of 15-20 mcg/mL. No changes. Thank you for the consult, Vivi Charlton, PharmD, BCPS
--- NOTE | 2017-01-18 12:45 | NUR ---
DISCHARGE TEACHING POST OP DISCHARGE TEACHING REVIEWED WITH PATIENT, , AND MOTHER. THEY VERBALIZED UNDERSTANDING. PRESCRIPTIONS FOR NORCO 10-325 TABLET, 1-2 TABLET Q6H PRN FOR PAIN AND KEFLEX 1 CAP PO BID GIVEN TO . COPIES ON CHART.
--- NOTE | 2017-01-18 13:06 | NUR ---
DISCHARGE PT DISCHARGED TO HOME IN GOOD CONDITION. SPLINT AND PAWEL WARP INTACT. PACKET WITH PATIENT. PT AMBULATED TO ED ENTRANCE ACCOMPANIED BY NURSING STAFF AND FAMILY.
== END 2017-01-18 13:06 | disposition home or self-care (01) ==
LOC: UNDOADMOB 08:53 → SRG 08:53 → SCU 08:53 → SRG 08:59 → UNDODISOB 01-18 13:06 → SCU 01-18 13:06 → EDSTATUS 01-21 10:04
PROVIDERS: ATTEND Orthopaedic Surgery
DX: M71.121 Other infective bursitis, right elbow (principal); B95.61 Methicillin susceptible Staphylococcus aureus infection as the cause of diseases classified elsewhere; F17.210 Nicotine dependence, cigarettes, uncomplicated
CPT/HCPCS: 24105; 36415; 71010; 80048; 80053; 80202; 81001; 85025; 85610; 85652; 85730; 86140; 87070; 87075; 87205; 93005; 99406; A6222; J0330; J1170; J1885; J2250; J2405; J2704; J3010; J3370; J7030; J7120; S0020